=== PATIENT | female | born 1970 | race Caucasian/White ===

== ENCOUNTER 2021-04-01 10:58 | Outpatient (REF) | payer BC, SELFPAY | END 2021-04-01 10:59 | disposition home or self-care (01) | LOC: HO.LNP 10:58 | PROVIDERS: Visit Provider Family Medicine | DX: N39.0 Urinary tract infection, site not specified (principal); R30.0 Dysuria | CPT/HCPCS: 87086; 87147 ==

== ENCOUNTER → 2021-08-30 13:27 | Outpatient (BNVA) | payer BC, SELFPAY | PROVIDERS: PCP Family Medicine; Visit Provider Internal Medicine Pulmonary Disease ==

== ENCOUNTER 2021-08-31 08:22 | Outpatient (REF) | payer BC, SELFPAY | END 2021-08-31 08:23 | disposition home or self-care (01) | LOC: HO.WFDLDS 08:22 | PROVIDERS: Visit Provider Internal Medicine Pulmonary Disease | DX: Z91.09 Other allergy status, other than to drugs and biological substances (principal); Z01.82 Encounter for allergy testing | CPT/HCPCS: 36415; 82785; 86003 ==

== ENCOUNTER 2021-09-23 08:45 | Outpatient (REF) | payer BC, SELFPAY ==
--- NOTE | 2021-09-23 16:56 | PFT_ITS ---
INDICATION: Dyspnea. SPIROMETRY: The FEV1 to FVC of 90% with an FEV1 of 1.89 L, which is 82% predicted, FVC of 2.09 L, which is 73% predicted. No significant response to bronchodilators noted. Maximum voluntary ventilation 87% predicted. LUNG VOLUMES: Total lung capacity 75% predicted with a residual volume of 63% predicted, and an expiratory reserve volume of 16% predicted. DIFFUSION CAPACITY: DLCO 130% predicted. COMPARISONS: None. INTERPRETATION: No obstructive ventilatory defect appreciated. No significant response to bronchodilators noted. Normal maximum voluntary ventilation. However the patient does have a mild restrictive ventilatory defect likely secondary to an elevated BMI, in addition to the possibility of underlying neuromuscular conditions. The patient does have a significant decreased expiratory reserve volume secondary to an elevated BMI as well. Diffusion capacity demonstrates significant elevation in her diffusion capacity suggesting the possibility of exogenous exposure to carbon monoxide. She does some smoking. Clinical correlation warranted. Should also test all her carbon monoxide alarms in her house. MD SOPHY River/FORTINO / [phone]
== END 2021-09-23 08:46 | disposition home or self-care (01) ==
LOC: HO.RESP 08:45
PROVIDERS: PCP Family Medicine; Visit Provider Internal Medicine Pulmonary Disease
DX: R06.00 Dyspnea, unspecified (principal); J45.909 Unspecified asthma, uncomplicated
CPT/HCPCS: 94060; 94727; 94729

== ENCOUNTER 2021-09-30 10:55 | Outpatient (REF) | payer BC, SELFPAY ==
--- NOTE | ~2021-09-30 | CT_ITS ---
EXAMINATION: CT CHEST WITHOUT CONTRAST CLINICAL INFORMATION: Post Covid condition COMPARISON: None TECHNIQUE: Multidetector volumetric CT imaging of the chest was done. Axial MIP volume rendering provided. Sagittal and coronal reformatted images were obtained. This CT examination was performed using dose optimization techniques as appropriate, variously including the following: *Automated exposure control *Adjustment of mA and/or kV according to patient size (this includes techniques or standardized protocols for targeted exams where dose is matched to indication/reason for exam; i.e. extremities or head) *Use of iterative reconstruction technique DLP: 236 mGy-cm FINDINGS: WATER [employer] PROGRAM DIRECTOR: Unremarkable LUNGS: There is a 2 mm calcified left upper lobe nodule axial image 265 series 7. There are small faint scattered areas of increased groundglass attenuation seen. Largest areas measure approximately 1 cm. No evidence of fibrosis is seen. No endobronchial or endotracheal lesion is seen. MEDIASTINUM: The mediastinum is normal. PLEURA: There is no pleural effusion. No pleural mass or thickening. AXILLA: No lymphadenopathy. UPPER ABDOMEN: There may be fatty infiltration of the liver. OSSEOUS STRUCTURES: Unremarkable. CT/CT chest wo con IMPRESSION: 2 mm calcified left upper lobe nodule probably representing a calcified granuloma. Scattered faint areas of increased groundglass attenuation, largest measuring approximately 1 cm. Appearance is nonspecific but may represent the residual of Covid infection. No fibrotic changes seen. Fleischner guidelines were followed.
== END 2021-09-30 10:56 | disposition home or self-care (01) ==
LOC: HO.CT 10:55
PROVIDERS: Visit Provider Internal Medicine Pulmonary Disease
DX: U09.9 Post COVID-19 condition, unspecified (principal)
CPT/HCPCS: 71250

== ENCOUNTER → 2021-10-24 07:21 | Outpatient (REF) | payer BC, SELFPAY ==
--- NOTE | 2021-10-24 07:24 | CA_ITS ---
Transthoracic Echocardiogram Patient (Last, First, Middle): Bernadette Holden M Gender: Female Date of : 1970 Age: 51 Procedure Date: 10/24/2021 Procedure Type: Transthoracic Echocardiogram Location: OP Height: 147.32 cm Weight: 104.33 kg BSA: 1.93 m2 Heart Rate: bpm BP: 135 / 88 mmHg Director Safety: MONE Referring MD: Laureano Pruitt MD Symptoms: R06.00 - Dyspnea, unspecified Study Quality: Fair Conclusions: - The left ventricular systolic function is normal. The calculated ejection fraction is 62% by biplane method. - There is mild tricuspid valve regurgitation. - Mild pulmonary hypertension is present. Findings Left Ventricle Normal left ventricular cavity size. There is normal left ventricular wall thickness. The left ventricular systolic function is normal. The calculated ejection fraction is 62% by biplane method. There is no evidence of regional wall motion abnormalities. Diastolic function is indeterminate on the basis of available data. E/E prime ratio is between 8 and 15 consistent with indeterminate filling pressures. Right Ventricle Normal right ventricular cavity size and systolic function. Atria Both atria are normal in size. Aortic Valve The aortic valve was not well visualized. There is no aortic valve stenosis. There is no aortic valve regurgitation. Mitral Valve The mitral valve appears normal. There is no mitral valve regurgitation. There is no mitral valve stenosis. Pulmonic Valve The pulmonic valve was not well visualized. Tricuspid Valve Normal tricuspid valve structure. There is mild tricuspid valve regurgitation. The right ventricular systolic pressure is 43 mmHg. Mild pulmonary hypertension is present. Great Vessels The aortic annulus, sinuses of valsalva, asc aorta, and aortic arch are normal in size. Venous The inferior vena cava is normal in size and collapses less than 50% with inspiration. Pericardium/Pleural There is no evidence of pericardial effusion. Prior Study Comparison No prior study available for comparison. Measurements 2D Linear Measurements IVSd: 0.95 0.6-0.9/0.6-1.0 cm LVIDd: 4.38 3.9-5.3/4.2-5.9 cm LVIDd Index: 2.27 2.4-3.2/2.2-3.1 cm/m2 LVIDs: 3.40 2.0-3.6 cm LVPWd: 0.91 0.7-1.1 cm LA Diam: 3.30 2.7-3.8/3.0-4.0 cm LAIDs Index: 1.71 1.5-2.3 cm/m2 LV Mass: 166.03 67-162/88-224 g LV Mass Index: 86.03 43-95/49-115 g/m2 LVOT Diam: 2.00 3.0+(-)1.3 cm 2D Systolic Function EF 4C: 63.70 >55% EF 2C: 63.30 >55% EF BiP: 61.90 >55% Mitral Valve MV Pk E: 1.00 MV PK A: 0.74 MV Decel Time: 174.00 E/A: 1.40 E'Lateral: 9.46 E'Medial: 6.31 E/E' Med: 15.80 E/E' Lat: 10.60 PHT: 51.00 MVA PHT: 4.31 Decel Calloway: 5.78 Aortic Valve AoV Pk Stalin: 1.59 AoV Mn Stalin: 1.13 AoV VTI: 0.30 AoV Pk Grad: 10.00 Aov Mn Grad: 6.00 SHIRLEY Cont.VTI: 2.16 LVOT LVOT Pk Stalin: 0.93 LVOT Mn Stalin: 0.69 LVOT VTI: 0.21 LVOT Pk Grad: 3.00 LVOT Mn Grad: 2.00 LVOT Diam: 2.00 LVOT Area: 3.14 Diastolic Function MV Pk E: 1.00 MV Pk A: 0.74 E/A: 1.40 E'Medial: 6.31 E/E' Med: 15.80 E' Laterial: 9.46 E/E' Lat: 10.60 Right Ventricle TAPSE (mm): 18.70 TVS' Stalin: 11.40 Tricuspid Valve TR Pk Stalin: 2.97 TR Pk Grad: 35.00 RA Press: 8.00 RVSP: 43.00 Great Vessels Aorta Sinus of Valsalva: 2.76 2.0-3.[address] Ridge: 2.01 1.7-3.4 cm Ao Asc: 2.60 2.1-3.4 cm Ao Arch: 2.70 Updated in Other Vendor System with Status of Final Titi Tsang MD electronically signed on 10/25/2021 11:16:53 AM with status of Final
== END ==
LOC: HO.CARD 07:21
PROVIDERS: Visit Provider Internal Medicine Pulmonary Disease
DX: R06.00 Dyspnea, unspecified (principal)
CPT/HCPCS: 93306

== ENCOUNTER 2022-05-03 12:23 | Outpatient (REF) | payer BC, SELFPAY ==
[2022-05-03 15:12] LABS: Syphilis Screen Nonreactive (Nonreactive)
[2022-05-03 18:07] LABS: CT PCR NOT DETECTED (Not Detect.); NG PCR NOT DETECTED (Not Detect.)
[2022-05-04 10:26] LABS: HBS Num1 0.84 mIU/mL (0-7.99); HBc Num1 0.13 S/CO (0.00-0.79); HBsAGNum1 0.18 S/CO (0.00-0.99); HIV AB/AG Nonreactive (Nonreactive); HIV Num 1 0.05 S/CO (0.00-0.99); Hepatitis B Core Antibody Nonreactive (Nonreactive); Hepatitis B Surface Antigen Negative (Negative); ~HepC Num1 0.11 S/CO (0.00-0.79); ~Hepatitis B Surface Antibody NONREACTIVE (Nonreactive); ~Hepatitis C Antibody Nonreactive (Nonreactive)
[2022-05-04 11:02] LABS: Herpes Simplex Type 1 IgG <0.90 index; Herpes Simplex Type 2 IgG <0.90 index
== END 2022-05-03 12:24 | disposition home or self-care (01) ==
LOC: HO.WFDLDS 12:23
PROVIDERS: Visit Provider Nurse Practitioner Family
DX: Z11.3 Encounter for screening for infections with a predominantly sexual mode of transmission (principal); Z11.4 Encounter for screening for human immunodeficiency virus [HIV]
CPT/HCPCS: 36415; 86695; 86696; 86704; 86706; 86780; 86803; 87340; 87389; 87491; 87591

== ENCOUNTER 2022-05-31 11:51 | Outpatient (REF) | payer BC, SELFPAY ==
[2022-05-31 12:51] LABS: Influenza A PCR NEGATIVE (Negative); Influenza B PCR NEGATIVE (Negative); Resp Syncy Virus RNA Qual PCR NEGATIVE (Negative); SARS COV2 PCR INHOUSE NEGATIVE (Negative)
== END 2022-05-31 11:52 | disposition home or self-care (01) ==
LOC: HO.LNP 11:51
PROVIDERS: Visit Provider Hospitalist
DX: R06.00 Dyspnea, unspecified (principal); J45.901 Unspecified asthma with (acute) exacerbation; Z20.822 Contact with and (suspected) exposure to COVID-19
CPT/HCPCS: 0241U

== ENCOUNTER 2022-09-08 09:08 | Outpatient (REF) | payer OTHER, SELFPAY ==
[2022-09-08 11:31] LABS: MANUAL DIFF FLAG NO
[2022-09-08 11:46] LABS: Basophils Percent Auto 0.5 % (0-2); Eosinophils Percent Auto 0.5 % (0-4); Hematocrit 43.4 % (37.0-47.0); Hemoglobin 14.6 g/dl (12.0-16.0); Imm Gran Abs Auto 0.04 X10*3/uL (0.00-0.03); Imm Gran Pct Auto 0.5 % (0.0-0.4); Lymphocytes Absolute Auto 1.8 X10*3/uL (1.2-4.9); Lymphocytes Percent Auto 22.4 % (20-40); Mean Corpuscular HGB Conc 33.6 g/dl (31.0-35.0); Mean Corpuscular Hemoglobin 30.5 pg (27.0-33.0); Mean Corpuscular Volume 90.6 fL (80.0-98.0); Mean Platelet Volume 10.3 fL (9.4-12.3); Monocytes Absolute Auto 0.8 X10*3/uL (0.1-1.2); Monocytes Percent Auto 10.4 % (2-11); Neutrophils Absolute Auto 5.3 x10*3/uL (2.0-8.3); Neutrophils Percent Auto 65.7 % (45-73); Platelet Count 309 X10*3/uL (160-400); Red Blood Count 4.79 X10*6/uL (4.20-5.50); Red Cell Distribution Width 13.2 % (11.0-16.0); White Blood Count 8.1 X10*3/uL (4.8-10.8)
[2022-09-08 12:17] LABS: Estimated Average Glucose 126 mg/dL
[2022-09-08 12:19] LABS: TSH reflex Free T4 1.92 uIU/mL (0.32-4.0); Vitamin D 25-OH Total 58.4 ng/mL (>30)
[2022-09-08 13:34] LABS: Microalbum/Creatinine Ratio Ur 5.2 ug/mg cr
[2022-09-11 16:23] LABS: CRP High Sensitivity >10.0 mg/L
== END 2022-09-08 09:09 | disposition home or self-care (01) ==
LOC: HO.WFDLDS 09:08
PROVIDERS: Visit Provider Nurse Practitioner Family
DX: E11.9 Type 2 diabetes mellitus without complications (principal)
CPT/HCPCS: 36415; 82043; 82306; 83036; 84443; 85025; 86141

== ENCOUNTER 2022-12-27 07:07 | Outpatient (REF) | payer OTHER, SELFPAY ==
[2022-12-27 11:20] LABS: MANUAL DIFF FLAG NO
[2022-12-27 11:46] LABS: Basophils Absolute Auto 0.1 X10*3/uL (0.0-0.2); Basophils Percent Auto 0.5 % (0-2); Hematocrit 40.1 % (37.0-47.0); Hemoglobin 13.3 g/dl (12.0-16.0); Imm Gran Abs Auto 0.08 X10*3/uL (0.00-0.03); Imm Gran Pct Auto 0.8 % (0.0-0.4); Lymphocytes Absolute Auto 1.3 X10*3/uL (1.2-4.9); Lymphocytes Percent Auto 13.8 % (20-40); Mean Corpuscular HGB Conc 33.2 g/dl (31.0-35.0); Mean Corpuscular Hemoglobin 30.3 pg (27.0-33.0); Mean Corpuscular Volume 91.3 fL (80.0-98.0); Mean Platelet Volume 10.3 fL (9.4-12.3); Monocytes Absolute Auto 0.7 X10*3/uL (0.1-1.2); Monocytes Percent Auto 7.1 % (2-11); Neutrophils Absolute Auto 7.4 x10*3/uL (2.0-8.3); Neutrophils Percent Auto 77.8 % (45-73); Platelet Count 316 X10*3/uL (160-400); Red Blood Count 4.39 X10*6/uL (4.20-5.50); Red Cell Distribution Width 13.3 % (11.0-16.0); White Blood Count 9.5 X10*3/uL (4.8-10.8)
[2022-12-27 11:48] LABS: Alanine Aminotransferase 16 U/L (0-31); Albumin Level 4.1 g/dL (3.5-5.0); Alkaline Phosphatase 65 U/L (39-117); Anion Gap 15 (12-20); Aspartate Amino Transferase 13 U/L (5-31); Bilirubin Total 0.3 mg/dL (0.0-1.0); Blood Urea Nitrogen 22 mg/dL (9-16); C Reactive Protein 1.07 mg/dL (< or = 0.50); Calcium 9.5 mg/dL (8.4-10.2); Carbon Dioxide 25 mmol/L (22-29); Chloride 104 mmol/L (96-108); Cholesterol 207 mg/dL; Estimated Glomerular Filt Rate > 60; Glucose Random 152 mg/dL (60-115); HDL Cholesterol 71 mg/dL; LDL Cholesterol Calculated 119 mg/dl; Potassium 4.3 mmol/L (3.3-5.1); Sodium 140 mmol/L (135-145); Total Protein 7.5 g/dL (6.5-8.0); Triglycerides 88 mg/dL
[2022-12-27 12:07] LABS: Estimated Average Glucose 123 mg/dL; Hemoglobin A1c % 5.9 %
== END 2022-12-27 07:08 | disposition home or self-care (01) ==
LOC: HO.WFDLDS 07:07
PROVIDERS: Visit Provider Family Medicine
DX: E11.9 Type 2 diabetes mellitus without complications (principal); J45.909 Unspecified asthma, uncomplicated; I10 Essential (primary) hypertension
CPT/HCPCS: 36415; 80053; 80061; 83036; 85025; 86140